=== PATIENT | male | born 1955 | race Native Hawaiian/Other Pacific Islander ===

== ENCOUNTER 2021-08-05 19:03 | Emergency (ER) | payer SELFPAY ==
[2021-08-05 20:20] VITALS: BP 174/85
[2021-08-05] MEDS ORDERED: ONDANSETRON 4 MG ODT TAB PO ONE (20:36)
[2021-08-05] MEDS ORDERED: TETANUS,DIPH,PERTUSS(ACELL) VACCINE 0.5 ML SYRINGE IM ONE (20:36)
[2021-08-05] MEDS ORDERED: HYDROcodone/ACETAMINOPHEN 5-325 MG TAB PO ONE (20:36)
--- NOTE | 2021-08-05 20:44 | Emergency Department Report ---
ED Fall HPI - General Chief Complaint: Wound/Laceration Stated Complaint: HEAD INJURY/FALL Source: patient Mode of arrival: Ambulatory - History of Present Illness Initial Comments: Patient is a 66-year-old male with no past medical history who presents to the ED with complaint of acute onset persistent painful bleeding extensive left frontal scalp laceration wound after he tripped when cleaning the yard and fell down, hitting his head against an Air Conditioning unit outside and the AC unit fun blade hit his head, causing extensive laceration wound on his left frontal scalp and face about 2 hours ago. Per family, patient did not have any loss of consciousness, but that the bleeding has not been well controlled until when the EMS personnel was called to the scene. Patient states that the wound was dressed by the EMS crew and they were advised to come to the ED for evaluation. Patient also states that he is not up-to-date with his tetanus vaccination. Patient denies dizziness, syncope, change in vision, headache, nausea and vomiting, neck pain, chest pain or shortness of breath, back pain, hip pain, numbness and tingling or weakness of upper or lower extremities bilaterally. MD Complaint: fall, other (head injury with bleeding left frontal laceration) -: Sudden, hour(s) (2) Fall From: standing When Fall Occurred: 1-3 hours [employer] Fall Witnessed: yes, by family Place Fall Occurred: home Loss of Consciousness: none Prolonged Down Time?: no Symptoms Prior to Fall: lightheadedness Location: head Severity: moderate Severity scale (0 -10): 6 Quality: sharp, aching Context: tripped/slipped Associated Symptoms: denies. denies: headache, neck pain, numbness, weakness, chest paint, shortness of breath, abdominal pain, hematuria, unable to walk, lightheaded, vertigo, confusion - Related Data Previous Rx's Medication Instructions Recorded Last Taken Type Ibuprofen [Motrin] 800 mg PO Q8HR PRN #30 tablet 08/05/21 Unknown Rx cephALEXin [Keflex] 500 mg PO Q8HR #30 cap 08/05/21 Unknown Rx Allergies Allergy/AdvReac Type Severity Reaction Status Date / Time No Known Allergies Allergy Verified 08/05/21 20:21 ED Review of Systems ROS: Stated complaint: HEAD INJURY/FALL Other details as noted in HPI Constitutional: denies: chills, fever Eyes: denies: eye pain, eye discharge, vision change ENT: other (left frontal scalp laceration). denies: ear pain, throat pain Respiratory: denies: cough, shortness of breath, wheezing Cardiovascular: denies: chest pain, palpitations Endocrine: no symptoms reported Gastrointestinal: denies: abdominal pain, nausea, vomiting, diarrhea Genitourinary: denies: urgency, dysuria Musculoskeletal: denies: back pain, joint swelling, arthralgia Skin: other (Bleeding left frontal and left parietal scalp laceration ). denies: rash, lesions Neurological: denies: headache, weakness, paresthesias Psychiatric: denies: anxiety, depression Hematological/Lymphatic: denies: easy bleeding, easy bruising ED Past Medical Hx - Medications Home Medications: Home Medications Medication Instructions Recorded Confirmed Last Taken Type Ibuprofen [Motrin] 800 mg PO Q8HR PRN #30 tablet 08/05/21 Unknown Rx cephALEXin [Keflex] 500 mg PO Q8HR #30 cap 08/05/21 Unknown Rx ED Physical Exam - General Limitations: No Limitations General appearance: alert, in no apparent distress - Head Head exam: Present: other (Bleeding extensive left frontal scalp 7 cm laceration; left parietal scalp 7 cm laceration) - Eye Eye exam: Present: normal appearance, PERRL, EOMI - ENT ENT exam: Present: normal exam, normal orophraynx, mucous membranes moist, TM's normal bilaterally, normal external ear exam - Neck Neck exam: Present: normal inspection, full ROM. Absent: tenderness - Respiratory Respiratory exam: Present: normal lung sounds bilaterally. Absent: respiratory distress, wheezes, rales, rhonchi, chest wall tenderness, accessory muscle use, decreased breath sounds - Cardiovascular Cardiovascular Exam: Present: regular rate, normal rhythm, normal heart sounds. Absent: systolic murmur, diastolic murmur, rubs, gallop - GI/Abdominal GI/Abdominal exam: Present: soft, normal bowel sounds. Absent: distended, tenderness, guarding, hyperactive bowel sounds, hypoactive bowel sounds, organomegaly - Extremities Exam Extremities exam: Present: normal inspection, full ROM, normal capillary refill - Back Exam Back exam: Present: normal inspection, full ROM. Absent: tenderness, CVA tenderness (R), CVA tenderness (L), muscle spasm, paraspinal tenderness, vertebral tenderness - Neurological Exam Neurological exam: Present: alert, oriented X3, CN II-XII intact, normal gait, reflexes normal - Psychiatric Psychiatric exam: Present: normal affect, normal mood - Skin Skin exam: Present: warm, dry, intact, normal color, other (Bleeding extensive left frontal scalp 7 cm laceration; left parietal scalp 7 cm laceration). Absent: rash ED Course Vital Signs 08/05/21 08/05/21 20:19 20:20 Temperature 98.3 F Pulse Rate 60 Blood Pressure 174/85 O2 Sat by Pulse 96 Oximetry - Laceration /Wound Repair Left Anterior Face Wound Location: face (left frontal scalp) Wound Length (cm): 7 Wound's Depth, Shape: linear, flap Wound Explored: contaminated Irrigated w/ Saline (ccs): 300 Betadine Prep?: No Anesthesia: 1% Lidocaine Volume Anesthetic (ccs): 8 Wound Debrided: extensive Wound Repaired With: sutures Suture Size/Type: 4:0, proline Number of Sutures: 14 Layer Closure?: No Sterile Dressing Applied?: No Progress: The wound was extensively cleaned with normal saline and local anesthesia 1% lidocaine, a total of 8 cc were infiltrated around the laceration wound. When anesthesia was fully achieved, the wound was closed with the Prolene 4-0 sutures. Patient tolerated procedure well. Left Parietal Wound Location: head (Left parietal scalp laceration) Wound Length (cm): 7 Wound's Depth, Shape: linear, flap Wound Explored: contaminated Irrigated w/ Saline (ccs): 300 Betadine Prep?: No Anesthesia: 1% Lidocaine Volume Anesthetic (ccs): 7 Wound Debrided: extensive Wound Repaired With: sutures (yarelis) Number of Sutures: 15 Layer Closure?: No Sterile Dressing Applied?: Yes Progress: The wound was extensively cleaned with normal saline and local anesthesia 1% lidocaine, a total of 8 cc were infiltrated around the laceration wound. When anesthesia was fully achieved, the wound was closed with yarelis. Patient tolerated procedure well. The wound was then dressed appropriately with 4 x 4 gauze and Kerlix. ED Medical Decision Making - Radiology Data Radiology results: report reviewed, image reviewed [facility] [address] [id number] Cat Scan Report Signed Patient: ELINOR OSORIO MR#: [id number] 1 : 1955 Acct:[id number] Age/Sex: 66 / M ADM Date: 08/05/21 Loc: ED Attending Dr: Ordering Physician: EVON MALDONADO Date of Service: 08/05/21 Procedure(s): CT head/brain wo con Accession Number(s): [id number] cc: EVON MALDONADO CT HEAD WITHOUT CONTRAST INDICATION : Fall - head injury. History of fall. TECHNIQUE: Axial, coronal and sagittal CT imaging was performed from the skull apex through the skull base without contrast. All CT scans at this location are performed using CT dose reduction for ALARA by means of automated exposure control. COMPARISON: None available. FINDINGS: PARENCHYMA: No mass, midline shift, hemorrhage, extraaxial collection or acute territorial infarction. VENTRICLES: Symmetric and normal in size. SOFT TISSUES: A left frontoparietal scalp laceration measures 1.6 cm on image 38 of series 602. No other significant abnormalities. BONES: No acute osseous abnormality. SINUSES: No significant abnormality. ADDITIONAL FINDINGS: None. IMPRESSION: 1. No acute intracranial abnormality. 2. Left frontoparietal scalp laceration. Signer Name: Tk Mora MD Signed: 08/05/2021 9:12 PM Workstation Name: [id number] Transcribed By: MN Dictated By: Tk Mora MD Electronically Authenticated By: Tk Mora MD Signed Date/Time: 08/05/212111 DD/ 09 TD/TT: - Medical Decision Making This is a 66-year-old male with no past medical history who presents to the ED with complaint of acute onset persistent painful bleeding extensive left frontal scalp laceration wound after he tripped when cleaning the yard and fell down, hitting his head against an Air Conditioning unit outside and the AC unit fun blade hit his head, causing extensive laceration wound on his left frontal scalp and face about 2 hours ago. Per family, patient did not have any loss of consciousness, but that the bleeding has not been well controlled until when the EMS personnel was called to the scene. Patient states that the wound was dressed by the EMS crew and they were advised to come to the ED for evaluation. Patient also states that he is not up-to-date with his tetanus vaccination. In the ED, patient is alert and oriented x3 and is not in any distress and is hemodynamically stable. Patient was treated for pain in the ED and also received booster tetanus vaccination in the ED. The left frontal scalp bleeding laceration was cleaned extensively and sutured per protocol with both yarelis and sutures. Patient tolerated procedure well. The wound was then dressed appropriately. The head CT scan without contrast showed no acute intracranial abnormalities or hemorrhage. On reevaluation, patient felt better, patient is hemodynamically stable, pain is resolved and patient is fully ambulatory in the ED, carrying out conversation normally with his family. Patient was discharged home on pain medication and prophylactic antibiotics and was advised to follow- up with his primary care physician in 5 to 7 days for reevaluation or return to the ED immediately if symptoms get worse. Patient was otherwise advised to return to the ED or to his primary care physician in 8 to 10 days for yarelis and suture removal. - Differential Diagnosis Scalp laceration; scalp contusion; lightheadedness Critical care attestation.: If time is entered above; I have spent that time in minutes in the direct care of this critically ill patient, excluding procedure time. ED Disposition Clinical Impression: Superficial laceration of face Laceration of scalp Qualifiers: Encounter type: initial encounter Qualified Code(s): S01.01XA - Laceration without foreign body of scalp, initial encounter Contusion of scalp Qualifiers: Encounter type: initial encounter Qualified Code(s): S00.03XA - Contusion of scalp, initial encounter Disposition: HOME / SELF CARE / HOMELESS Is pt being admited?: No Does the pt Need Aspirin: No Condition: Stable Instructions: Facial or Scalp Contusion, [id number], Laceration Care, Adult, [id number], Sutured Wound Care, [id number], Sutures, [place], or Adhesive Wound Closure, [id number] Additional Instructions: [place] los analgsicos segn sea necesario con alimentos, tome los antibiticos hasta que termine nirali se indica. Regrese inmediatamente al servicio de urgencias si presenta dolor de srinivas intenso, nuseas y vmitos, cambios en la visin, sncope, mareos, fiebre y escalofros, enrojecimiento difuso del pie derecho alrededor de la herida con secrecin purulenta. Ignacio un seguimiento con reyes mdico de atencin primaria en 5 a 7 jacobo para renetta reevaluacin. De lo contrario, regrese al servicio de urgencias oa reyes mdico de atencin primaria en 8 a 10 jacobo para que le retiren las grapas y las suturas. Prescriptions: cephALEXin [Keflex] 500 mg PO Q8HR #30 cap Ibuprofen [Motrin] 800 mg PO Q8HR PRN #30 tablet PRN Reason: Pain , Severe (7-10) Referrals: [facility] [Provider Group] - 7-10 days Time of Disposition: 22:40 Print Language: PORTUGUESE
--- NOTE | 2021-08-05 21:17 | Cat Scan Report ---
CT HEAD WITHOUT CONTRAST INDICATION : Fall - head injury. History of fall. TECHNIQUE: Axial, coronal and sagittal CT imaging was performed from the skull apex through the skul l base without contrast. All CT scans at this location are performed using CT dose reduction for ALA RA by means of automated exposure control. COMPARISON: None available. FINDINGS: PARENCHYMA: No mass, midline shift, hemorrhage, extraaxial collection or acute territorial infarctio n. VENTRICLES: Symmetric and normal in size. SOFT TISSUES: A left frontoparietal scalp laceration measures 1.6 cm on image 38 of series 602. No o ther significant abnormalities. BONES: No acute osseous abnormality. SINUSES: No significant abnormality. ADDITIONAL FINDINGS: None. IMPRESSION: 1. No acute intracranial abnormality. 2. Left frontoparietal scalp laceration. Signer Name: Tk Mora MD Signed: 08/05/2021 9:12 PM Workstation Name: [id number]
[2021-08-05] MEDS ORDERED: LIDOCAINE (1%) 10 MG/1 ML VIAL 20 ML MDV INFILTRATI ONE (21:39)
== END 2021-08-05 23:00 | disposition home or self-care (01) ==
LOC: ED 19:03
DX: S01.01XA Laceration without foreign body of scalp, initial encounter (principal); S01.81XA Laceration without foreign body of other part of head, initial encounter; Z79.899 Other long term (current) drug therapy; W18.30XA Fall on same level, unspecified, initial encounter; Y93.89 Activity, other specified; Y92.099 Unspecified place in other non-institutional residence as the place of occurrence of the external cause; Y99.8 Other external cause status
CPT/HCPCS: 70450; 90471; 90715; Q0162

== ENCOUNTER 2021-08-16 09:40 | Emergency (ER) | payer SELFPAY ==
[2021-08-16 11:03] VITALS: BP 183/67
--- NOTE | 2021-08-16 11:07 | Emergency Department Report ---
- General Chief Complaint: Laceration/Recheck/Suture Stated Complaint: HEAD INJURY Time Seen by Provider: 08/16/21 10:59 Source: patient Mode of arrival: Ambulatory Limitations: Language Barrier - History of Present Illness Initial Comments: Chief complaint: I need yarelis out HPI: This is a 66-year-old male who presents for staple suture removal. My colleague perform complex laceration repair of the mid forehead scalp 11 days ago on August 05. Patient has not had any symptoms such as headache, fever, drainage since the repair. He has no other medical concerns. [employer] Material at the bedside provided [place] language interpretation - Related Data Previous Rx's Medication Instructions Recorded Last Taken Type Ibuprofen [Motrin] 800 mg PO Q8HR PRN #30 tablet 08/05/21 Unknown Rx cephALEXin [Keflex] 500 mg PO Q8HR #30 cap 08/05/21 Unknown Rx Allergies Allergy/AdvReac Type Severity Reaction Status Date / Time No Known Allergies Allergy Verified 08/05/21 20:21 ED Review of Systems ROS: Stated complaint: HEAD INJURY Other details as noted in HPI Constitutional: denies: fever, malaise Gastrointestinal: denies: nausea, vomiting Skin: other (Repair laceration) Neurological: denies: headache, numbness, paresthesias, confusion, abnormal gait, vertigo ED Past Medical Hx - Medications Home Medications: Home Medications Medication Instructions Recorded Confirmed Last Taken Type Ibuprofen [Motrin] 800 mg PO Q8HR PRN #30 tablet 08/05/21 Unknown Rx cephALEXin [Keflex] 500 mg PO Q8HR #30 cap 08/05/21 Unknown Rx ED Physical Exam - General Limitations: Language Barrier General appearance: alert, in no apparent distress, other (Pleasant smiling talkative GCS 15) - Head Head exam: Present: other (Approximately 15 cm left central scalp facial laceration with numerous yarelis and Prolene sutures well-healed, well approximated, no erythema or purulence no bleeding) - Neurological Exam Neurological exam: Present: alert, oriented X3 - Psychiatric Psychiatric exam: Present: normal affect, normal mood - Skin Skin exam: Present: warm, dry, intact, normal color ED Course Vital Signs 08/16/21 11:02 Temperature 97.9 F Pulse Rate 56 L Respiratory 16 Rate Blood Pressure 183/67 [Right] O2 Sat by Pulse 96 Oximetry ED Medical Decision Making - Medical Decision Making This is a pleasant 66-year-old male who presents 11 days after complex laceration repair with yarelis and sutures. The wound is well-healed well approximated without signs of infection. Charge nurse will remove yarelis and sutures. Patient is discharged home. Critical care attestation.: If time is entered above; I have spent that time in minutes in the direct care of this critically ill patient, excluding procedure time. ED Disposition Clinical Impression: Removal of staple, Visit for suture removal, Complex laceration of face, Lacer ation of scalp Disposition: 01 HOME / SELF CARE / HOMELESS Is pt being admited?: No Does the pt Need Aspirin: No Condition: Stable Instructions: Suture Removal, Care After, Wound Closure Removal, Care After Referrals: SRIDEVI GARDNER MD [Staff Physician] - as needed Print Language: CZECH
== END 2021-08-16 11:47 | disposition home or self-care (01) ==
LOC: ED 09:40
DX: S01.01XD Laceration without foreign body of scalp, subsequent encounter (principal); X58.XXXD Exposure to other specified factors, subsequent encounter

== ENCOUNTER 2021-11-24 14:23 | Emergency (ER) | payer OTHER ==
--- NOTE | 2021-11-24 14:30 | Event Note ---
ED Screening Note ED Screening Note: Kyrgyz interpretation by patient's son with the patient's permission Patient is a 66-year-old male who presents emergency room complaints of double vision that began when he woke up on 11/22/21 He reports he also has a mild headache and feels off balance and dizziness He denies any chest pain, shortness of breath, unilateral numbness, unilateral weakness, speech disturbance, hearing changes This initial assessment/diagnostic orders/clinical plan/treatment(s) is/are subject to change based on patients health status, clinical progression and re- assessment by fellow clinical providers in the ED. Further treatment and workup at subsequent clinical providers discretion. Patient/guardian urged not to elope from the ED as their condition may be serious if not clinically assessed and managed. Initial orders include: Labs, EKG, CT
[2021-11-24 14:59] VITALS: BP 161/88
--- NOTE | 2021-11-24 15:23 | Emergency Department Report ---
HPI - General Chief Complaint: Dizziness Time Seen by Provider: 11/24/21 15:01 - HPI HPI: 66-year-old male with history of hypertension and diabetes presents complaining of double vision, left eye pain, and headache since Thursday. The patient states that for the past 2 days he has had these symptoms which have been constant. They are not worsening. He has double vision when he looks at anything far away and feels dizzy because of this. He is also had difficulty ambulating due to feeling off balance with the double vision. He states that 1 week ago he saw a primary care doctor who started him on Metformin for the first time. His only other relevant history is history of head trauma several months ago. He denies any associated fever/chills, neck pain, chest pain, shortness of breath, cough, back pain, abdominal pain, nausea/vomiting, focal weakness, sensory changes, or any other complaints ED Past Medical Hx - Past Medical History Previous Medical History?: Yes Hx Hypertension: Yes Hx Diabetes: Yes - Surgical History Past Surgical History?: No - Medications Home Medications: Home Medications Medication Instructions Recorded Confirmed Last Taken Type Ibuprofen [Motrin] 800 mg PO Q8HR PRN #30 tablet 08/05/21 Unknown Rx cephALEXin [Keflex] 500 mg PO Q8HR #30 cap 08/05/21 Unknown Rx ED Review of Systems ROS: Stated complaint: double VISION PROBLEMS Other details as noted in HPI Comment: All other systems reviewed and negative Constitutional: denies: chills, fever Eyes: eye pain, other (double vision) ENT: denies: throat pain, congestion Respiratory: denies: cough, shortness of breath Cardiovascular: denies: chest pain, palpitations Gastrointestinal: denies: abdominal pain, nausea, vomiting Genitourinary: denies: dysuria, frequency Musculoskeletal: denies: back pain, arthralgia Neurological: other (dizziness). denies: headache, weakness, numbness Hematological/Lymphatic: denies: easy bleeding Physical Exam - Physical Exam Vital Signs: Vital Signs 11/24/21 14:58 Temperature 98.2 F Pulse Rate 74 Respiratory 16 Rate Blood Pressure 161/88 [Left] O2 Sat by Pulse 95 Oximetry Physical Exam: GENERAL: Well developed and well nourished. No acute distress HEAD: Normocephalic. No obvious signs of trauma. ENT: Moist mucous membranes. EYES: Pupils are dilated bilaterally and reactive to light bilaterally. Extraocular movements are intact in the right eye. The left eye has esotropia at rest and is unable to deviate laterally consistent with cranial nerve palsy. NECK: Supple. Full ROM is intact. Trachea is midline. LUNGS: Nonlabored breathing. Equal chest rise bilaterally. Clear to auscultation bilaterally. CARDIOVASCULAR: Regular rate and rhythm. No murmurs or rubs. VASCULAR: Cap refill < 2 seconds ABDOMEN: Abdomen is soft and nondistended. There is no significant tenderness, guarding or rebound. SKIN: Skin is warm and dry NEURO: Patient is awake, alert, and oriented. senior partner II-XII grossly intact. No focal deficits. Normal motor and sensory exam throughout. Normal speech. MUSCULOSKELETAL: No obvious deformities. No significant tenderness. Normal ROM throughout. ED Course Vital Signs 11/24/21 14:58 Temperature 98.2 F Pulse Rate 74 Respiratory 16 Rate Blood Pressure 161/88 [Left] O2 Sat by Pulse 95 Oximetry ED Medical Decision Making - Lab Data Result diagrams: 11/24/21 15:11 11/24/21 15:11 Lab Results 11/24/21 11/24/21 11/24/21 Range/Units 15:11 15:11 15:19 WBC 7.0 (4.5-11.0) K/mm3 RBC 5.04 H (3.65-5.03) M/mm3 Hgb 15.1 (11.8-15.2) gm/dl Hct 46.1 H (35.5-45.6) % MCV 92 (84-94) fl MCH 30 (28-32) pg MCHC 33 (32-34) % RDW 14.1 (13.2-15.2) % Plt Count 169 (140-440) K/mm3 Lymph % (Auto) 31.8 (13.4-35.0) % Glascock % (Auto) 9.4 H (0.0-7.3) % Eos % (Auto) 2.4 (0.0-4.3) % Baso % (Auto) 0.6 (0.0-1.8) % Lymph # (Auto) 2.2 (1.2-5.4) K/mm3 Glascock # (Auto) 0.7 (0.0-0.8) K/mm3 Eos # (Auto) 0.2 (0.0-0.4) K/mm3 Baso # (Auto) 0.0 (0.0-0.1) K/mm3 Seg Neutrophils % 55.8 (40.0-70.0) % Seg Neutrophils # 3.9 (1.8-7.7) K/mm3 PT 13.1 (12.2-14.9) Sec. INR 0.89 (0.87-1.13) APTT 32.0 (24.2-36.6) Sec. Thrombin Time 17.4 (15.1-19.6) Sec. Sodium 138 (137-145) mmol/L Potassium 3.9 (3.6-5.0) mmol/L Chloride 102.1 (98-107) mmol/L Carbon Dioxide 23 (22-30) mmol/L Anion Gap 17 mmol/L BUN 14 (9-20) mg/dL Creatinine 0.8 (0.8-1.3) mg/dL Estimated GFR > 60 ml/min BUN/Creatinine Ratio 18 % Glucose 233 H (75-100) mg/dL Calcium 9.3 (8.4-10.2) mg/dL Magnesium 2.20 (1.7-2.3) mg/dL Total Bilirubin 0.40 (0.1-1.2) mg/dL AST 44 H (5-40) units/L ALT 47 (7-56) units/L Alkaline Phosphatase 103 (35-129) units/L Total Creatine Kinase 96 (55-170) units/L Troponin T < 0.010 (0.00-0.029) ng/mL C-Reactive Protein 0.10 (0.00-1.30) mg/dL Total Protein 7.5 (6.3-8.2) g/dL Albumin 4.2 (3.9-5) g/dL Albumin/Globulin Ratio 1.3 % Plasma/Serum Alcohol (0-0.07) % 11/24/ Range/Units 15:19 WBC (4.5-11.0) K/mm3 RBC (3.65-5.03) M/mm3 Hgb (11.8-15.2) gm/dl Hct (35.5-45.6) % MCV (84-94) fl MCH (28-32) pg MCHC (32-34) % RDW (13.2-15.2) % Plt Count (140-440) K/mm3 Lymph % (Auto) (13.4-35.0) % Glascock % (Auto) (0.0-7.3) % Eos % (Auto) (0.0-4.3) % Baso % (Auto) (0.0-1.8) % Lymph # (Auto) (1.2-5.4) K/mm3 Glascock # (Auto) (0.0-0.8) K/mm3 Eos # (Auto) (0.0-0.4) K/mm3 Baso # (Auto) (0.0-0.1) K/mm3 Seg Neutrophils % (40.0-70.0) % Seg Neutrophils # (1.8-7.7) K/mm3 PT (12.2-14.9) Sec. INR (0.87-1.13) APTT (24.2-36.6) Sec. Thrombin Time (15.1-19.6) Sec. Sodium (137-145) mmol/L Potassium (3.6-5.0) mmol/L Chloride (98-107) mmol/L Carbon Dioxide (22-30) mmol/L Anion Gap mmol/L BUN (9-20) mg/dL Creatinine (0.8-1.3) mg/dL Estimated GFR ml/min BUN/Creatinine Ratio % Glucose (75-100) mg/dL Calcium (8.4-10.2) mg/dL Magnesium (1.7-2.3) mg/dL Total Bilirubin (0.1-1.2) mg/dL AST (5-40) units/L ALT (7-56) units/L Alkaline Phosphatase (35-129) units/L Total Creatine Kinase (55-170) units/L Troponin T (0.00-0.029) ng/mL C-Reactive Protein (0.00-1.30) mg/dL Total Protein (6.3-8.2) g/dL Albumin (3.9-5) g/dL Albumin/Globulin Ratio % Plasma/Serum Alcohol < 0.01 (0-0.07) % - EKG Data -: EKG Interpreted by Me - EKG Data 11/24/21 23:15 Normal sinus rhythm. Normal axis. Normal intervals. No ectopy. No signific ant ST segment or T wave abnormalities. - Radiology Data Radiology results: report reviewed - Medical Decision Making 66-year-old male with hypertension diabetes presenting with 2 days of double vision and left eye pain. He is afebrile and with normal vital signs other than elevated blood pressure. He is out of the window for TPA despite having a neurologic deficit. On physical examination he has what appears to be a cranial nerve palsy on the left. Pupils are dilated bilaterally and reactive to light bilaterally. He has no other neurologic deficits. Given that we do not have a Joe-Pen available to measure intraocular pressure, we will obtain Noncon CT of the head as well as CTA of the head and neck to assess for evidence of stroke and cavernous sinus thrombosis. If scans do not reveal an obvious neurologic cause of the patient's symptoms, will likely need to transfer the patient to a facility with ophthalmology/the ability to measure intraocular pressure given the possibility of glaucoma. We will perform full work-up with labs and imaging as described. He has 20/50 vision in both the right and left eyes. At 3:38 PM I spoke with Dr. Gage of teleneurology regarding the case. He agrees with this plan and recommends CTA of the head and neck with transfer to facility with ophthalmology if no neurologic cause identified. Labs reveal no significant leukocytosis or anemia. Kidney function is normal and there are no significant electrolyte abnormalities although the patient's glucose is elevated in the 200s for which we will give 1 L of IV fluids CTA of the head and neck reveals no acute abnormality including no abnormality of the dural venous sinuses. We will now attempt to transfer the patient to a facility with the ability to measure intraocular pressure and with ophthalmology on-call. While trying to arrange transfer for the patient, I was alerted that the patient wishes to leave AGAINST MEDICAL ADVICE to go to another facility himself. I discussed with him the risks of leaving AGAINST MEDICAL ADVICE which include possible temporary versus permanent disability and even . He expressed understanding of the risks and still wishes to leave AGAINST MEDICAL ADVICE. He was encouraged to go to another emergency room since he is leaving and this is an eye-sight threatening problem Critical Care Time: No Critical care attestation.: If time is entered above; I have spent that time in minutes in the direct care of this critically ill patient, excluding procedure time. 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
[2021-11-24 15:30] LABS: Basophils % (Auto) 0.6 % (0.0-1.8); Eosinophils # (Auto) 0.2 K/mm3 (0.0-0.4); Eosinophils % (Auto) 2.4 % (0.0-4.3); Hematocrit 46.1 % (35.5-45.6); Hemoglobin 15.1 gm/dl (11.8-15.2); Lymphocytes # (Auto) 2.2 K/mm3 (1.2-5.4); Lymphocytes % (Auto) 31.8 % (13.4-35.0); Mean Corpuscular HGB Conc 33 % (32-34); Mean Corpuscular Volume 92 fl (84-94); Monocytes # (Auto) 0.7 K/mm3 (0.0-0.8); Monocytes % (Auto) 9.4 % (0.0-7.3); Platelet Count 169 K/mm3 (140-440); Red Blood Count 5.04 M/mm3 (3.65-5.03); Red Cell Distribution Width 14.1 % (13.2-15.2)
--- NOTE | 2021-11-24 15:40 | Consultation ---
Medications and Allergies Allergies Allergy/AdvReac Type Severity Reaction Status Date / Time No Known Allergies Allergy Verified 08/05/21 20:21 Home Medications Medication Instructions Recorded Confirmed Last Taken Type Ibuprofen [Motrin] 800 mg PO Q8HR PRN #30 tablet 08/05/21 Unknown Rx cephALEXin [Keflex] 500 mg PO Q8HR #30 cap 08/05/21 Unknown Rx Physical Examination - Vital Signs Vital Signs: Vital Signs Temp Pulse Resp BP Pulse Ox 98.2 F 74 16 161/88 95 11/24/21 14:58 11/24/21 14:58 11/24/21 14:58 11/24/21 14:58 11/24/21 14:58 Results - Laboratory Findings CBC and BMP: 11/24/21 15:11 Abnormal Lab Findings: Abnormal Labs 11/24/21 15:11 RBC 5.04 H Hct 46.1 H Woodruff % (Auto) 9.4 H Assessment and Plan [facility] Consult Note # Demographics Consult Type: General Neurology Patient Location: Emergency Room First Name: ELINOR Last Name: DEVON Date of : 1955 Age: 66 Gender: Male Facility: [facility] Time of Initial Page (Eastern Time): 11/24/2021, 15:34 Time of Return Call (Eastern Time): 11/24/2021, 15:34 # HPI History: 66M with 2 days of double vision and eye pain. Left lateral rectus palsy. Vision is poor in both eyes. No other neurologic deficit. # Data Head CT: no bleed per radiologist read CTA Head: no large vessel occlusion # Assessment Impression: Other Double vision with left CN6 palsy, pain reported, need to consider ocular issue. # Plan Thrombolytic/Intervention: NOT IV Thrombolysis or IA Intervention candidate Thrombolytic Exclusion (< 3 hour window): time of onset unclear Thrombolytic Exclusion: > 4.5 hours Intraarterial Exclusion: other pending CTA head Imaging: (urgency: routine): CT Angiogram Head and CT Angiogram Neck Additional Recommendations: If no concerning abnormality found on CTA head/neck, next priority is ophthalmology evaluation, also would consider MRI brain wwo attn orbitz. Disposition: transfer # [employer] Telemedicine: phone only
[2021-11-24 15:42] LABS: INR 0.89 (0.87-1.13)
[2021-11-24 15:43] LABS: Thrombin Time 17.4 Sec. (15.1-19.6)
[2021-11-24 16:22] LABS: Alanine Aminotransferase 47 units/L (7-56); Albumin 4.2 g/dL (3.9-5); BUN/Creatinine Ratio 18; Blood Urea Nitrogen 14 mg/dL (9-20); Calcium 9.3 mg/dL (8.4-10.2); Hemolysis Index 59
[2021-11-24] MEDS ORDERED: SODIUM CHLORIDE 0.9% 1000 ML 1,000 ML IV ONE (17:27)
--- NOTE | 2021-11-24 18:59 | Cat Scan Report ---
CTA NECK WITH CONTRAST 11/24/2021 INDICATION / CLINICAL INFORMATION: stroke sx. No information provided. COMPARISON: None. TECHNIQUE: Routine CTA of the neck is performed. 3-D/MIP reformats were postprocessed. Percentage st enosis is determined by direct quantitative measurements of diseased internal carotid artery diameter compared with normal distal internal carotid artery reference segments or by criteria similar to TRISHA CET where applicable. All CT scans at this location are performed using CT dose reduction for ALARA b y means of automated exposure control. CONTRAST: 100 ml of Omnipaque 350 FINDINGS: Carotid bifurcations: No significant abnormality Carotid arteries: No significant abnormality. Cervical vertebral arteries: No significant abnormality. Aortic arch: No significant abnormality. None. IMPRESSION: No significant abnormality. Signer Name: Yvan Mendoza MD Signed: 11/24/2021 6:54 PM Workstation Name: [id number]
--- NOTE | 2021-11-24 19:01 | Cat Scan Report ---
CTA HEAD WITH CONTRAST 11/24/2021 HISTORY: stroke sx. No information provided COMPARISON: None. TECHNIQUE: All CT scans at this location are performed using CT dose reduction for ALARA by means of automated exposure control.. 3-D/MIP reformats postprocessed. Percentage stenosis is determined by d irect quantitative measurements of diseased internal carotid artery diameter compared with normal dis juan internal carotid artery reference segments or by criteria similar to NASCET where applicable. CONTRAST: 100 ml of Omnipaque 350 FINDINGS: CTA HEAD: Intracranial vertebral arteries: No significant abnormality. Basilar artery: No significant abnormality. Posterior cerebral arteries: No significant abnormality. Intracranial internal carotid arteries: No significant abnormality. Anterior cerebral arteries: No significant abnormality. Middle cerebral arteries: No significant abnormality. Dural venous sinuses:Not optimally opacified. No significant abnormality. Additional findings: None. IMPRESSION: 1. No significant abnormality. Signer Name: Yvan Mendoza MD Signed: 11/24/2021 6:57 PM Workstation Name: [id number]
--- NOTE | 2021-11-25 07:18 | Cat Scan Report ---
CT HEAD WITHOUT CONTRAST INDICATION / CLINICAL INFORMATION: dizziness, off balance, double vision. TECHNIQUE: All CT scans at this location are performed using CT dose reduction for ALARA by means of automated exposure control. COMPARISON: 08/05/2021 FINDINGS: HEMORRHAGE: None. EXTRA-AXIAL SPACES: Normal in size and morphology for the patient's age. VENTRICULAR SYSTEM: Normal in size and morphology for the patient's age. CEREBRAL PARENCHYMA: No significant abnormality. No acute territorial infarct. MIDLINE SHIFT / HERNIATION: None. CEREBELLUM / BRAINSTEM: No significant abnormality. ORBITS: Normal as visualized SOFT TISSUES: No significant abnormality. SKULL: No significant abnormality. PARANASAL SINUSES / MASTOID AIR CELLS: Normal as visualized ADDITIONAL FINDINGS: None. IMPRESSION: 1. No acute intracranial abnormality. Signer Name: Reza Mendes DO Signed: 11/25/2021 7:14 AM Workstation Name: [id number]
--- NOTE | 2021-11-25 11:00 | Electrocardiograph Report ---
[facility] Test Date: 2021-11-24 Test Time: 20:43:01 Pat Name: ELINOR OSORIO Department: Room: Gender: M Tax Assessor: JESSICA : 1955 Requested By: GIO KNOWLES Order Number: [id number] Reading MD: Liza Hill Measurements Intervals Sylva Rate: 58 P: 35 TX: 140 QRS: -12 QRSD: 100 T: 20 QT: 450 QTc: 442 Interpretive Statements Sinus rhythm No previous ECG available for comparison Electronically Signed On 11-25-2021 11:00:14 EST by Liza Hill
== END 2021-11-24 22:20 | disposition left against medical advice (07) ==
LOC: ED 14:23
DX: H49.22 Sixth [abducent] nerve palsy, left eye (principal); H53.2 Diplopia; H57.12 Ocular pain, left eye; E11.65 Type 2 diabetes mellitus with hyperglycemia; R51.9 Headache, unspecified; I10 Essential (primary) hypertension
CPT/HCPCS: 36415; 70450; 70496; 70498; 80053; 82550; 83735; 84484; 85025; 85610; 85670; 85730; 86140; 93005; 96360; 99284; J7030; Q9967; 80320; Q0162; G0480